=== PATIENT | male | born 1985 | race Caucasian/White ===

== ENCOUNTER 2017-06-06 16:34 | Emergency (ER) | payer OTHER ==
--- NOTE | 2017-06-06 16:50 | ED ORDER SUMMARY ---
..... Patient: SHARLA CASEY OrderSheet [facility]ly [facility] VisitID: [id number] [address] [place] [address] 32y, M Registration Date/Time: 06/06/2017 ORDER SHEET Weight: 79.3 kg (stated) Allergies: Vancomycin, DICOFIX ? GENERAL ORDERS: MEDICATION ORDERS: Bactrim DS PO (Tablet 800-160 mg) 1 tab (NOW) (16:48 06/06/2017 EKoroledebbie P.A.-C) (Ack 16:55 [facility] [place] (17:16 [facility] [place]) Keflex PO 500 mg (NOW) (16:48 06/06/2017 EKoroleva P.A.-C) (Ack 16:55 [facility] [place]) (17:16 [facility] [place]) IV FLUIDS: ORDER SHEET NOTES: [Electronically signed by Sol Hopson P.A.-Roseanna (17:10 06/06/2017)] [Electronically signed by Emigdio Benitez (17:20 06/06/2017)] [Electronically locked/signed by Emigdio Benitez (17:20 06/06/2017)]
--- NOTE | 2017-06-06 16:50 | ED NURSING NOTES ---
Clinical Report - Nurses [facility] [address] [place] [address] 06/06/2017 16:36 Patient: SHARLA CASEY TRIAGE Triage time 16:46 Jun 06 2017. Acuity: LEVEL 4. Chief Complaint: Posssible abcess. 16:52 06/06/17. ( Pt reports using IV heroine in left groin area for past 2 weeks. Pt reports wound in left groin for approx 3 days. Right groin has multiple IV injection wounds. Pt reports vomiting for last 2 days.). SEPSIS SCREEN: Sepsis Screen: negative. Infection suspected/documented. Heart rate greater than 90. --16:52 AliM 16:44 06/06/17. BP: 146/82 taken on the left arm, via an automated monitor, while sitting. HR: 95. RR: 16. O2 saturation: 98% on room air. Temp: 98.4 F (oral). Pain level now: 05/29. --16:52 AliM. Weight: 79.3 kg stated. Height/Length: 68 inches Per Patient. BMI: 26.6. --16:47 AliM. Medications None. --17:19 AliM. Allergies Vancomycin. --16:48 AliM DICOFIX ?. --16:49 AliM. History Arrived by private vehicle. Historian: patient. Primary physician (none). Onset. (approx 3 days ago). It is described as moderately painful. 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 (800mg approx 1 hr ago). SOCIAL HX: Heavy tobacco smoker- 1 pack per day. History of drug use: heroin, marijuana. Recently used drugs today. No alcohol use. No infectious disease exposure. ABUSE ASSESSMENT: No report of abuse. FALL RISK ASSESSMENT: Fall risk assessment completed. No fall risk identified. NUTRITIONAL RISK ASSESSMENT: The nutritional risk assessment revealed no deficiencies. FUNCTIONAL ASSESSMENT: Functional assessment: no impairments noted. LEARNING NEEDS ASSESSMENT: The learning needs assessment revealed no barriers. SKIN INTEGRITY ASSESSMENT: Skin integrity risk assessment completed. No skin integrity risk identified. --16:52 AliM. PROBLEMS: no known problems. ADDITIONAL SURGERIES: Both feet. Gallbladder Surgery. Knee Surgery. Tonsillectomy. --16:49 AliM. Interventions ID band on patient. To treatment room. --16:52 AliM. PHYSICAL ASSESSMENT Ambulatory to room. ( Purplegray 1cm circular wound on left groin. Hardness/tenderness approx 3in around wound.). GENERAL / NEURO / PSYCH: Alert. The patient does not appear to be in acute distress. Oriented X 4. HEENT: Mucous membranes are pink. RESPIRATORY: Respirations not labored. CVS: Capillary refill less than 2 seconds. Pulses within normal limits. SKIN: Skin is warm and dry. Normal skin turgor. No skin rash. --16:53 AliM. NURSING PROGRESS NOTES 16:53 06/06/17. The plan of care for this patient has been created. Monitoring of patient in place. Patient gowned. Head of bed elevated. Reassurance given. Call light placed in reach. Side rails up x 1. Bed placed in lowest position. Brakes of bed on. Patient ready for evaluation- DIP BRAZIER notified. --16:53 AliM. DISPOSITION / DISCHARGE 17:16 06/06/2017 Bactrim DS (Sulfamethoxazole-TMP DS) PO Tablets 1 tab given. Allergies verified and confirmed 5 rights. --17:16 AliM 17:16 06/06/2017 Keflex (Cephalexin) PO Capsules 500 mg given. Allergies verified and confirmed 5 rights. --17:16 AliM 17:17 06/06/17. Departure time: 17:11 Jun 06 2017. Condition at departure: unchanged and stable. No learning barriers present. Discharge instructions provided and reviewed with the patient. Reviewed medication(s) side effects, precautions, dosing and course information. Prescription(s) given to the patient. Patient verbalized understanding. Written instructions provided in [place]. ( Taught pt to take full course of abx even if symptoms improve. Apply warm pack to area as needed. Seek medical care if fever or worsening symptoms appear.). The patient was discharged by the nurse practitioner. He was discharged home and unaccompanied at time of discharge. He left the Emergency Department ambulatory and via private vehicle. Patient driving. FALL RISK ASSESSMENT: Fall risk assessment completed. No fall risk identified. PAMELA COMA SCORE: [place] Coma Scale: 15- eyes open spontaneously (4); best verbal response- oriented x 4 (5); best motor response- obeys commands (6). --17:19 Bruno 17:16 06/06/17. BP: 138/75 taken on the left arm, via an automated monitor, while lying. HR: 87. RR: 16 (regular and unlabored). O2 saturation: 100% on room air. Temp: 98.4 F (oral). Pain level now: 05/29. --17:19 Bruno. Locked/Released at 06/06/2017 17:20 by Bruno,
--- NOTE | 2017-06-06 16:50 | ED CLINICAL REPORT ---
Clinical Report - Physicians/Mid Levels [facility] [address] [place] [address] 06/06/2017 16:36 Patient: SHARLA CASEY Time Seen: 17:08 Jun 06 2017. Arrived- By private vehicle. Historian- patient. HISTORY OF PRESENT ILLNESS Chief Complaint: SKIN RASH and LESION. This started just prior to arrival and is still present. It is described as painful. It has been located on the left lower extremity. (patient reports injecting into the left femoral region, over the last 3 days has noticed swelling in her rash to the area. He denies fevers or chills. Last tetanus immunization 2 years previously.). REVIEW OF SYSTEMS No fever, chills, difficulty breathing or diarrhea. All systems otherwise negative, except as recorded above. SOCIAL HISTORY Smoker- current status unknown. History of IV drug use. No alcohol use. PHYSICAL EXAM Appearance: Alert. No acute distress. ENT: Ears normal. Nose normal. CVS: Normal heart rate and rhythm. Respiratory: No respiratory distress. Skin: Skin warm. Tender indurated area (left inguinal region, minor area of 1 by 2 cm, longitudional, mild erythema, no flutulance,). Cellulitis. Extremities: (full rom at hip, full rom at knee, good distal sensation). Neuro: Oriented X 3. PROGRESS AND PROCEDURES Course of Care: Full range of motion no lymphangitic streaking towards abdomen. Localized pain and swelling, induration, with no fluctuance. Afebrile. Early signs of infection versus early cellulitis. Patient is asked to use warm packs, started on antibiotics. 06/06/2017 16:44 BP: 146/82. HR: 95. RR: 16. O2 saturation: 98%. Temp: 98.4 F. Pain level now: 7/10. Patient is stable. Patient/family counseled. Disposition: Discharged. CLINICAL IMPRESSION Single superficial abscess. Hypertension. Acute left inguinal lymphadenitis INSTRUCTIONS (warm packs warm packs antibiotics if no improvement/ or unsure if improvement RETURN to ER in 48 hours or follow up with PCP). Prescription Medications: Bactrim DS 800 mg / 160 mg: take 1 tablet orally every 12 hours for 10 days. No refill. Substitution is permissible. Keflex 500 mg: take 1 capsule orally every 8 hours for 10 days. No refill. Substitution is permissible. Understanding of the discharge instructions verbalized. (Electronically signed by Sol Hopson P.A.-C 06/06/2017 17:10)
--- NOTE | 2017-06-06 16:50 | ED CLINICAL REPORT ---
Clinical Report - Physicians/Mid Levels [facility] [address] [place] [address] 06/06/2017 16:36 Patient: SHARLA CASEY Time Seen: 17:08 Jun 06 2017. Arrived- By private vehicle. Historian- patient. HISTORY OF PRESENT ILLNESS Chief Complaint: SKIN RASH and LESION. This started just prior to arrival and is still present. It is described as painful. It has been located on the left lower extremity. (patient reports injecting into the left femoral region, over the last 3 days has noticed swelling in her rash to the area. He denies fevers or chills. Last tetanus immunization 2 years previously.). REVIEW OF SYSTEMS No fever, chills, difficulty breathing or diarrhea. All systems otherwise negative, except as recorded above. SOCIAL HISTORY Smoker- current status unknown. History of IV drug use. No alcohol use. PHYSICAL EXAM Appearance: Alert. No acute distress. ENT: Ears normal. Nose normal. CVS: Normal heart rate and rhythm. Respiratory: No respiratory distress. Skin: Skin warm. Tender indurated area (left inguinal region, minor area of 1 by 2 cm, longitudional, mild erythema, no flutulance,). Cellulitis. Extremities: (full rom at hip, full rom at knee, good distal sensation). Neuro: Oriented X 3. PROGRESS AND PROCEDURES Course of Care: Full range of motion no lymphangitic streaking towards abdomen. Localized pain and swelling, induration, with no fluctuance. Afebrile. Early signs of infection versus early cellulitis. Patient is asked to use warm packs, started on antibiotics. 06/06/2017 16:44 BP: 146/82. HR: 95. RR: 16. O2 saturation: 98%. Temp: 98.4 F. Pain level now: 7/10. Patient is stable. Patient/family counseled. Disposition: Discharged. CLINICAL IMPRESSION Single superficial abscess. Hypertension. Acute left inguinal lymphadenitis INSTRUCTIONS (warm packs warm packs antibiotics if no improvement/ or unsure if improvement RETURN to ER in 48 hours or follow up with PCP). Prescription Medications: Bactrim DS 800 mg / 160 mg: take 1 tablet orally every 12 hours for 10 days. No refill. Substitution is permissible. Keflex 500 mg: take 1 capsule orally every 8 hours for 10 days. No refill. Substitution is permissible. Understanding of the discharge instructions verbalized. (Electronically signed by Sol Hopson P.A.-C 06/06/2017 17:10)
--- NOTE | 2017-06-06 16:50 | ED ORDER SUMMARY ---
..... Patient: SHARLA CASEY OrderSheet [facility] VisitID: [id number] [address] [place] [address] 32y, M Registration Date/Time: 06/06/2017 ORDER SHEET Weight: 79.3 kg (stated) Allergies: Vancomycin, DICOFIX ? GENERAL ORDERS: MEDICATION ORDERS: Bactrim DS PO (Tablet 800-160 mg) 1 tab (NOW) (16:48 06/06/2017 EKoroledebbie P.A.-C) (Ack 16:55 [facility] [place] (17:16 [facility] [place]) Keflex PO 500 mg (NOW) (16:48 06/06/2017 EKoroleva P.A.-C) (Ack 16:55 [facility] [place]) (17:16 [facility] [place]) IV FLUIDS: ORDER SHEET NOTES: [Electronically signed by Sol Hopson P.A.-Roseanna (17:10 06/06/2017)] [Electronically signed by Emigdio Benitez (17:20 06/06/2017)] [Electronically locked/signed by Emigdio Benitez (17:20 06/06/2017)]
--- NOTE | 2017-06-06 16:50 | ED NURSING NOTES ---
Clinical Report - Nurses [facility] [address] [place] [address] 06/06/2017 16:36 Patient: SHARLA CASEY TRIAGE Triage time 16:46 Jun 06 2017. Acuity: LEVEL 4. Chief Complaint: Posssible abcess. 16:52 06/06/17. ( Pt reports using IV heroine in left groin area for past 2 weeks. Pt reports wound in left groin for approx 3 days. Right groin has multiple IV injection wounds. Pt reports vomiting for last 2 days.). SEPSIS SCREEN: Sepsis Screen: negative. Infection suspected/documented. Heart rate greater than 90. --16:52 AliM 16:44 06/06/17. BP: 146/82 taken on the left arm, via an automated monitor, while sitting. HR: 95. RR: 16. O2 saturation: 98% on room air. Temp: 98.4 F (oral). Pain level now: 05/29. --16:52 AliM. Weight: 79.3 kg stated. Height/Length: 68 inches Per Patient. BMI: 26.6. --16:47 AliM. Medications None. --17:19 AliM. Allergies Vancomycin. --16:48 AliM DICOFIX ?. --16:49 AliM. History Arrived by private vehicle. Historian: patient. Primary physician (none). Onset. (approx 3 days ago). It is described as moderately painful. 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 (800mg approx 1 hr ago). SOCIAL HX: Heavy tobacco smoker- 1 pack per day. History of drug use: heroin, marijuana. Recently used drugs today. No alcohol use. No infectious disease exposure. ABUSE ASSESSMENT: No report of abuse. FALL RISK ASSESSMENT: Fall risk assessment completed. No fall risk identified. NUTRITIONAL RISK ASSESSMENT: The nutritional risk assessment revealed no deficiencies. FUNCTIONAL ASSESSMENT: Functional assessment: no impairments noted. LEARNING NEEDS ASSESSMENT: The learning needs assessment revealed no barriers. SKIN INTEGRITY ASSESSMENT: Skin integrity risk assessment completed. No skin integrity risk identified. --16:52 AliM. PROBLEMS: no known problems. ADDITIONAL SURGERIES: Both feet. Gallbladder Surgery. Knee Surgery. Tonsillectomy. --16:49 AliM. Interventions ID band on patient. To treatment room. --16:52 AliM. PHYSICAL ASSESSMENT Ambulatory to room. ( Purplegray 1cm circular wound on left groin. Hardness/tenderness approx 3in around wound.). GENERAL / NEURO / PSYCH: Alert. The patient does not appear to be in acute distress. Oriented X 4. HEENT: Mucous membranes are pink. RESPIRATORY: Respirations not labored. CVS: Capillary refill less than 2 seconds. Pulses within normal limits. SKIN: Skin is warm and dry. Normal skin turgor. No skin rash. --16:53 AliM. NURSING PROGRESS NOTES 16:53 06/06/17. The plan of care for this patient has been created. Monitoring of patient in place. Patient gowned. Head of bed elevated. Reassurance given. Call light placed in reach. Side rails up x 1. Bed placed in lowest position. Brakes of bed on. Patient ready for evaluation- INSURANCE CLAIMS ADJUSTER notified. --16:53 AliM. DISPOSITION / DISCHARGE 17:16 06/06/2017 Bactrim DS (Sulfamethoxazole-TMP DS) PO Tablets 1 tab given. Allergies verified and confirmed 5 rights. --17:16 AliM 17:16 06/06/2017 Keflex (Cephalexin) PO Capsules 500 mg given. Allergies verified and confirmed 5 rights. --17:16 AliM 17:17 06/06/17. Departure time: 17:11 Jun 06 2017. Condition at departure: unchanged and stable. No learning barriers present. Discharge instructions provided and reviewed with the patient. Reviewed medication(s) side effects, precautions, dosing and course information. Prescription(s) given to the patient. Patient verbalized understanding. Written instructions provided in [place]. ( Taught pt to take full course of abx even if symptoms improve. Apply warm pack to area as needed. Seek medical care if fever or worsening symptoms appear.). The patient was discharged by the nurse practitioner. He was discharged home and unaccompanied at time of discharge. He left the Emergency Department ambulatory and via private vehicle. Patient driving. FALL RISK ASSESSMENT: Fall risk assessment completed. No fall risk identified. PAMELA COMA SCORE: [place] Coma Scale: 15- eyes open spontaneously (4); best verbal response- oriented x 4 (5); best motor response- obeys commands (6). --17:19 Bruno 17:16 06/06/17. BP: 138/75 taken on the left arm, via an automated monitor, while lying. HR: 87. RR: 16 (regular and unlabored). O2 saturation: 100% on room air. Temp: 98.4 F (oral). Pain level now: 05/29. --17:19 Bruno. Locked/Released at 06/06/2017 17:20 by Bruno,
--- NOTE | 2017-06-06 17:20 | ED DISCHARGE INSTRUCTIONS ---
Patient: SHARLA CASEY General Instructions [facility] VisitID: [id number] [place] [address] 32y, M Registration Date/Time: 06/06/2017 Single superficial abscess. Hypertension. Acute left inguinal lymphadenitis INSTRUCTIONS (warm packs warm packs antibiotics if no improvement/ or unsure if improvement RETURN to ER in 48 hours or follow up with PCP). Prescription Medications: Bactrim DS 800 mg / 160 mg: take 1 tablet orally every 12 hours for 10 days. No refill. Substitution is permissible. Keflex 500 mg: take 1 capsule orally every 8 hours for 10 days. No refill. Substitution is permissible. Understanding of the discharge instructions verbalized. ADDITIONAL INFORMATION Abscess [Incision & Drainage] An abscess (sometimes called a boil) occurs when bacteria get trapped under the skin and begin to grow. Pus forms inside the abscess as the body responds to the bacteria. An abscess can occur with an insect bite, ingrown hair, blocked oil gland, pimple, cyst, or puncture wound. Treatment of your abscess has required an incision to drain the pus. If the abscess pocket was large, a gauze packing may have been inserted. This will need to be removed and possibly replaced on your next visit. Antibiotics are not required in the treatment of a simple abscess, unless the infection is spreading into the skin around the wound (known as cellulitis). Healing of the wound will take about one to two weeks depending on the size of the abscess. Healthy tissue will grow from the bottom and sides of the opening until it seals over. Home Care: The wound may drain for the first two days. Cover the wound with a clean dry dressing. If the dressing becomes soaked with blood or pus, change it. If a gauze packing was placed inside the abscess cavity, you may be advised to remove it yourself. You may do this in the shower. Once the packing is removed, you should wash the area in the shower or bath 3 to 4 times a day, until the skin opening has closed. If you were prescribed antibiotics, take them as directed until they are all gone. You may use acetaminophen (Tylenol) or ibuprofen (Motrin, Advil) to control pain, unless another pain medicine was prescribed. [ NOTE: If you have liver disease or ever had a stomach ulcer, talk with your doctor before using these medicines.] Follow Up with your doctor as advised by our staff. If a gauze packing was inserted in your wound, it should be removed in 1-2 days. Check your wound every day for the signs of worsening infection listed below. Get Prompt Medical Attention if any of the following occur: Increasing redness or swelling Red streaks in the skin leading away from the wound Increasing local pain or swelling Continued pus draining from the wound two days after treatment Fever of 100.4F (38C) or higher, or as directed by your healthcare provider Cellulitis You have an infection of the skin known as cellulitis. This usually starts with a scrape, cut, insect bite, blister or other opening in the skin which becomes infected. This is a serious condition. It must be watched closely to be sure the infection is not spreading. With antibiotic treatment, the size of the red area will gradually shrink in size until the skin returns to normal. This will take 7-10 days. The red area should never increase in size once the antibiotic medicine has been started. Occasionally, an infection will be resistant to one antibiotic and another one will have to be used. Home Care: 1) Limit the use of the affected part, since excess movement can cause the infection to spread. 2) If the infection is on your leg, walk as little as possible during the first few days of the treatment. Keep your leg elevated while sitting. This will reduce swelling. 3) Take all of the antibiotic medicine exactly as directed until it is gone. Be careful not to miss any doses, especially during the first seven days. Follow Up with your doctor or this facility as directed. Check the infected area daily for the warning signs listed below. Get Prompt Medical Attention if any of the following occur: -- Spreading area of redness -- Increasing swelling or pain -- Appearance of pus or drainage -- Fever over 100.4 F (38.0 C) oral, or over 101.4 F (38.6 C) rectal, after two days on antibiotics Lymph Node Infection [Local, Antibiotic Treatment] You have a bacterial infection of the lymph node. The lymph nodes are part of the immune system and become swollen and tender when there is a nearby infection or inflammation. The lymph nodes are found under the jaw and along the side of the neck, in the armpits and in the groin. An infection or inflammation in the tissues nearby causes the lymph nodes to swell and become tender. When a bacterial infection occurs in the lymph node, it becomes very painful and the nearby skin gets red and warm. There may also be a fever. Antibiotics and hot compresses are used to treat this infection. The pain and redness will decrease over the next 7-10 days. Swelling may take several months to go away. Sometimes an ABSCESS (with pus) forms inside the lymph node. If this happens, antibiotics may not be enough to cure the infection. Minor Surgery may be needed to drain the pus. Home Care: Take all of the antibiotic medicine exactly as prescribed until it is gone. Be careful not to miss any doses, especially during the first few days. Make a hot compress by running hot water over a face cloth. Apply it to the sore area until it cools off. Repeat this for 20 minutes. Apply the hot compress three times a day for the first three days or until the pain and redness begin to improve. The heat will increase the blood flow to the area and speed the healing process. You may use acetaminophen (Tylenol) or ibuprofen (Motrin, Advil) to control pain and fever, unless another medicine was prescribed for this. Do not use ibuprofen in children under six months of age. [NOTE: If you have chronic liver or kidney disease or ever had a stomach ulcer or GI bleeding, talk with your doctor before using these medicines.] (Aspirin should never be used in anyone under 18 years of age who is ill with a fever. It may cause severe liver damage.) Follow Up with your doctor or this facility after completion of the antibiotics or as directed. Get Prompt Medical Attention if any of the following occur: Increasing redness, swelling or pain in the lymph node Pus or fluid drainage from the lymph node Difficulty breathing or swallowing Fever remains over 100.5F (38.0C) oral or 101.5F (38.3C) rectal for more than 2 days of treatment Sulfamethoxazole, Trimethoprim Oral tablet What is this medicine? SULFAMETHOXAZOLE; TRIMETHOPRIM or SMX-TMP (suhl fuh meth OK lavinia zohl; trye METH oh prim) is a combination of a sulfonamide antibiotic and a second antibiotic, trimethoprim. It is used to treat or prevent certain kinds of bacterial infections. It will not work for colds, flu, or other viral infections. How should I use this medicine? Take this medicine by mouth with a full glass of water. Follow the directions on the prescription label. Take your medicine at regular intervals. Do not take it more often than directed. Do not skip doses or stop your medicine early. Talk to your an/ssn 2 4 operator regarding the use of this medicine in children. Special care may be needed. This medicine has been used in children as young as 2 months of age. What side effects may I notice from receiving this medicine? Side effects that you should report to your doctor or health healthcare project manager as soon as possible: allergic reactions like skin rash or hives, swelling of the face, lips, or tongue breathing problems fever or chills, sore throat irregular heartbeat, chest pain joint or muscle pain pain or difficulty passing urine red pinpoint spots on skin redness, blistering, peeling or loosening of the skin, including inside the mouth unusual bleeding or bruising unusually weak or tired yellowing of the eyes or skin Side effects that usually do not require medical attention (report to your doctor or health healthcare project manager if they continue or are bothersome): diarrhea dizziness headache loss of appetite nausea, vomiting nervousness What may interact with this medicine? Do not take this medicine with any of the following medications: aminobenzoate potassium dofetilide metronidazole This medicine may also interact with the following medications: ABBI inhibitors like benazepril, enalapril, lisinopril, and ramipril cyclosporine digoxin diuretics indomethacin medicines for diabetes methenamine methotrexate phenytoin potassium supplements pyrimethamine sulfinpyrazone tricyclic antidepressants warfarin What if I miss a dose? If you miss a dose, take it as soon as you can. If it is almost time for your next dose, take only that dose. Do not take double or extra doses. Where should I keep my medicine? Keep out of the reach of children. Store at room temperature between 20 to 25 degrees C (68 to 77 degrees F). Protect from light. Throw away any unused medicine after the expiration date. What should I tell my health care provider before I take this medicine? They need to know if you have any of these conditions: anemia asthma being treated with anticonvulsants if you frequently drink alcohol containing drinks kidney disease liver disease low level of folic acid or [id number] dehydrogenase poor nutrition or malabsorption porphyria severe allergies thyroid disorder an unusual or allergic reaction to sulfamethoxazole, trimethoprim, sulfa drugs, other medicines, foods, dyes, or preservatives or trying to get breast-feeding What should I watch for while using this medicine? Tell your doctor or health healthcare project manager if your symptoms do not improve. Drink several glasses of water a day to reduce the risk of kidney problems. Do not treat diarrhea with over the counter products. Contact your doctor if you have diarrhea that lasts more than 2 days or if it is severe and watery. This medicine can make you more sensitive to the sun. Keep out of the sun. If you cannot avoid being in the sun, wear protective clothing and use a sunscreen. Do not use sun lamps or tanning beds/booths. Cephalexin Monohydrate Oral tablet What is this medicine? CEPHALEXIN (sef a ALLEGRA in) is a cephalosporin antibiotic. It is used to treat certain kinds of bacterial infections It will not work for colds, flu, or other viral infections. How should I use this medicine? Take this medicine by mouth with a full glass of water. Follow the directions on the prescription label. This medicine can be taken with or without food. Take your medicine at regular intervals. Do not take your medicine more often than directed. Take all of your medicine as directed even if you think you are better. Do not skip doses or stop your medicine early. Talk to your an/ssn 2 4 operator regarding the use of this medicine in children. While this drug may be prescribed for selected conditions, precautions do apply. What side effects may I notice from receiving this medicine? Side effects that you should report to your doctor or health healthcare project manager as soon as possible: allergic reactions like skin rash, itching or hives, swelling of the face, lips, or tongue breathing problems pain or trouble passing urine redness, blistering, peeling or loosening of the skin, including inside the mouth severe or watery diarrhea unusually weak or tired yellowing of the eyes, skin Side effects that usually do not require medical attention (report to your doctor or health healthcare project manager if they continue or are bothersome): gas or heartburn genital or anal irritation headache joint or muscle pain nausea, vomiting What may interact with this medicine? probenecid some other antibiotics What if I miss a dose? If you miss a dose, take it as soon as you can. If it is almost time for your next dose, take only that dose. Do not take double or extra doses. There should be at least 4 to 6 hours between doses. Where should I keep my medicine? Keep out of the reach of children. Store at room temperature between 59 and 86 degrees F (15 and 30 degrees C). Throw away any unused medicine after the expiration date. What should I tell my health care provider before I take this medicine? They need to know if you have any of these conditions: kidney disease stomach or intestine problems, especially colitis an unusual or allergic reaction to cephalexin, other cephalosporins, penicillins, other antibiotics, medicines, foods, dyes or preservatives or trying to get breast-feeding What should I watch for while using this medicine? Tell your doctor or health healthcare project manager if your symptoms do not begin to improve in a few days. Do not treat diarrhea with over the counter products. Contact your doctor if you have diarrhea that lasts more than 2 days or if it is severe and watery. If you have diabetes, you may get a false-positive result for sugar in your urine. Check with your doctor or health healthcare project manager. You have been given the following additional information: Abscess, Incision And Drainage Cellulitis Cervical Adenitis, Antiobiotic Treatment Sulfamethoxazole, Trimethoprim Oral tablet Cephalexin Monohydrate Oral tablet (Electronically signed by Sol Hopson P.A.-C 06/06/2017 17:10)
--- NOTE | 2017-06-06 17:20 | ED MAR SUMMARY ---
..... Medication Administration Record [facility] [address] [place] [address] Patient: SHARLA CASEY Visit ID: [id number] 32y, M Weight: 79.3 kg Height/Length: 68 in BMI: 26.6 ALLERGIES: DICOFIX ?, Vancomycin Given 17:06/06/2017 AliM, Medication Administered: BACTRIM DS [PO] (SULFAMETHOXAZOLE-TMP DS), Dose: 1 tab Tablets PO. Medication Ordered: Bactrim DS PO (Tablet 800-160 mg) 1 tab (NOW). Given 17:06/06/2017 AliM, Medication Administered: KEFLEX [PO] (CEPHALEXIN), Dose: 500 mg Capsules PO. Medication Ordered: Keflex PO 500 mg (NOW).
--- NOTE | 2017-06-06 17:20 | ED MED RECONCILIATION SUMMARY ---
Patient: SHARLA CASEY Medication Reconciliation Report [facility] VisitID: [id number] [place] [address] 32y, M Registration Date/Time: 06/06/2017 Weight: 79.3 kg Height/Length: 68 in. BMI: 26.6 ALLERGIES: DICOFIX ?, Vancomycin The patient's Home Medications are listed below: NONE. The source(s) of the original Home Medication information: Not obtained. The following Medications were given to the patient in the Emergency Department: Bactrim DS [PO] PO 1 tab, administered: 06/06/2017 5:16:00 PM Keflex [PO] PO 500 mg, administered: 06/06/2017 5:16:00 PM The following Medications were prescribed to the patient: Bactrim DS 800 mg / 160 mg: take 1 tablet orally every 12 hours for 10 days. No refill. Substitution is permissible. -- oSl Hopson P.AKenny-Roseanna Keflex 500 mg: take 1 capsule orally every 8 hours for 10 days. No refill. Substitution is permissible. -- Sol Hopson, P.A.-C
--- NOTE | 2017-06-06 17:20 | ED MAR SUMMARY ---
..... Medication Administration Record [facility] [address] [place] [address] Patient: SHARLA CASEY Visit ID: [id number] 32y, M Weight: 79.3 kg Height/Length: 68 in BMI: 26.6 ALLERGIES: DICOFIX ?, Vancomycin Given 17:06/06/2017 AliM, Medication Administered: BACTRIM DS [PO] (SULFAMETHOXAZOLE-TMP DS), Dose: 1 tab Tablets PO. Medication Ordered: Bactrim DS PO (Tablet 800-160 mg) 1 tab (NOW). Given 17:06/06/2017 AliM, Medication Administered: KEFLEX [PO] (CEPHALEXIN), Dose: 500 mg Capsules PO. Medication Ordered: Keflex PO 500 mg (NOW).
--- NOTE | 2017-06-06 17:20 | ED MED RECONCILIATION SUMMARY ---
Patient: SHARLA CASEY Medication Reconciliation Report [facility] VisitID: [id number] [place] [address] 32y, M Registration Date/Time: 06/06/2017 Weight: 79.3 kg Height/Length: 68 in. BMI: 26.6 ALLERGIES: DICOFIX ?, Vancomycin The patient's Home Medications are listed below: NONE. The source(s) of the original Home Medication information: Not obtained. The following Medications were given to the patient in the Emergency Department: Bactrim DS [PO] PO 1 tab, administered: 06/06/2017 5:16:00 PM Keflex [PO] PO 500 mg, administered: 06/06/2017 5:16:00 PM The following Medications were prescribed to the patient: Bactrim DS 800 mg / 160 mg: take 1 tablet orally every 12 hours for 10 days. No refill. Substitution is permissible. -- Sol Hopson P.AKenny-Roseanna Keflex 500 mg: take 1 capsule orally every 8 hours for 10 days. No refill. Substitution is permissible. -- Sol Hopson, P.A.-C
== END 2017-06-06 17:11 | disposition home or self-care (01) ==
LOC: ED SRH 16:34
DX: L02.416 Cutaneous abscess of left lower limb (principal); L04.8 Acute lymphadenitis of other sites; I10 Essential (primary) hypertension; Z88.1 Allergy status to other antibiotic agents; F11.10 Opioid abuse, uncomplicated